=== PATIENT | female | born 1950 | race Caucasian/White ===

== ENCOUNTER 2019-07-08 12:36 | Outpatient (RCR) | payer OTHER, MEDICARE, SELFPAY ==
[2019-07-08 13:21] LABS: Hemoglobin 5.6 g/dL (12.0-15.0)
[2019-07-08 13:22] LABS: Hematocrit 15.1 % (37.0-47.0)
--- NOTE | 2019-07-08 16:18 | PC.NURSE ---
1618-PT HAS ARRIVED TO THE [facility] AT 1200 FOR A BLOOD TRANSFUSION OF 1U PRBC. AFTER LABS WERE DRAWN, PT'S H&H FOUND TO BE QUITE LOW. DR. CHEEMA'S OFFICE INFORMED AND TOLD THROUGH HIS NURSE TO TRANSFUSE 2U PRBC AND SEND TO [facility] PT HAD JUST BEEN SEEN THERE LAST WEEK FOR LOW H&H. LATER PT FOUND TO HAVE SIGNIFICANT ANTIBODIES WHICH PRECLUDED RECEIVING BLOOD THIS AFTERNOON. DR. CHEEMA INFORMED AND THIS LINEN ROOM WORKER WAS TOLD THROUGH HIS RN TO SEND PT TO [facility] WITHOUT RECEIVING BLOOD AT THIS FACILITY. PT IS QUITE RELUCTANT TO GO TO [facility] SHE HAD AN UNPLEASANT EXPERIENCE LAST WEEK. HOWEVER DR. CHEEMA DOES NOT WANT PT ADMITTED AT [facility] BECAUSE OF HER RECENT ADMISSION AND TESTING AT [facility]. SPOKE WITH BOTH THIS LINEN ROOM WORKER'S DIRECTOR AND SEO TEAM LEAD AND WAS TOLD TO CALL CARE COORDINATION TO MAKE SURE THIS WAS ACCEPTABLE. SPOKE WITH HELLEN, DRY PLACER MACHINE OPERATOR AND WAS ASSURED BY BOTH THAT THIS WAS ACCEPTABLE. FURTHERMORE, THIS IS NOT A TRANSFER OF THE PT FROM AN ER OR THE FLOOR, WAS TOLD NOT TO FILL OUT AN AUTHORIZATION FOR PATIENT TRANSFER FORM. INFORMED LINEN ROOM WORKER'S DIRECTOR AND SEO TEAM LEAD AND TOLD TO PROCEED WITH TRANSPORTATION TO [facility]. PT IS AGREEABLE WITH TRANSPORTATION TO [facility]. [facility] CALLED AND REPORT GIVEN TO MICHAEL. [facility]YNDA CALLED FOR TRANSPORT. PT AT THIS DENIES ANY COMPLAINTS AT THIS TIME AND APPEARS TO BE IN NO ACUTE DISTRESS. WILL CONTINUE TO MONITOR.
--- NOTE | 2019-07-08 17:43 | PC.NURSE ---
1720-PT PICKED UP BY EMS FOR TRANSPORT TO [facility]. NO DISTRESS NOTED. AOX4. PT DENIES DISTRESS AT TIME OF TRANSPORT.
== END 2019-10-06 23:59 | disposition home or self-care (01) ==
LOC: ANHCPCTRAN 12:36
PROVIDERS: PCP Internal Medicine; Visit Provider Internal Medicine
DX: D64.9 Anemia, unspecified (principal)
CPT/HCPCS: 36415; 85014; 85018; 86850; 86880; 86900; 86901